=== PATIENT | female | born 1960 | race Caucasian/White ===

== ENCOUNTER → 2024-10-02 | Outpatient (CLI) | payer OTHER ==
--- NOTE | 2024-10-02 14:19 | XR ---
EXAMINATION TYPE: XR knee complete 3 views RT DATE OF EXAM: 10/02/2024 1:51 PM COMPARISON: None CLINICAL INDICATION: Female, 64 years old with history of M25.561, patient with history of ACL and me niscal repair in 2016. Right knee pain. FINDINGS: There is prominent tricompartmental degenerative spurring along with small knee joint effusion. Exten sor mechanism appears intact. No acute fracture, subluxation, dislocation. IMPRESSION: Moderate tricompartmental degenerative spurring. Weightbearing view could better assess the degree of cartilage and joint space narrowing. Small knee joint effusion is nonspecific. [facility], , 10/02/2024 2:16 PM
== END | disposition home or self-care (01) ==
LOC: RADXRMAIN 13:24
PROVIDERS: ATTEND Family Medicine
DX: M25.461 Effusion, right knee (principal); M76.891 Other specified enthesopathies of right lower limb, excluding foot

== ENCOUNTER → 2024-10-16 | Outpatient (CLI) | payer MEDICARE | END | disposition home or self-care (01) | LOC: LABWHC1 10:29 | PROVIDERS: ATTEND Family Medicine | DX: Z01.83 Encounter for blood typing (principal) | CPT/HCPCS: 86850; 86900; 86901 ==